=== PATIENT | female | born 1995 | race African-American/Black ===

== ENCOUNTER 2018-02-09 16:43 | Emergency (ER) | payer OTHER ==
[2018-02-09 16:54] VITALS: BP 117/85
[2018-02-09] MEDS ORDERED: DEXAMETHASONE 10 MG/ML VIAL PO STA (17:21)
[2018-02-09] MEDS ORDERED: IPRATROPIUM/ALBUTEROL 3 ML NEB INH STA (17:21)
--- NOTE | 2018-02-09 17:44 | ED Physician Documentation ---
PD HPI URI - Stated complaint Stated Complaint: Cough/ congestion - Chief complaint Chief Complaint: Resp - History obtained from History obtained from: Patient - History of Present Illness Timing - onset: How many weeks ago (1) Timing duration: Weeks (1) Timing details: Gradual onset, Still present Associated symptoms: Fever, Sweats, Nasal congestion, Rhinorrhea, Dry cough, Chest pain, Dyspnea Contributing factors: Sick contact Improves by: Rest, Medication Worsened by: Activity Similar symptoms before: No diagnosis Recently seen: Clinic - Additional information Additional information: 22-year-old female has developed a sore throat cough fever congestion and chest pain. She is having some trouble getting a full deep breath. She had something similar to this happen about 1 month ago she took today off work and had improvement. Review of Systems Constitutional: reports: Fever, Chills, Myalgias, Fatigue Eyes: denies: Decreased vision Ears: denies: Ear pain Nose: reports: Rhinorrhea / runny nose, Congestion Throat: reports: Sore throat Cardiac: denies: Chest pain / pressure, Palpitations Respiratory: reports: Dyspnea, Cough, Wheezing GI: denies: Abdominal Pain, Nausea, Vomiting : denies: Dysuria PD PAST MEDICAL HISTORY - Present Medications Home Medications: Ambulatory Orders Medication Instructions Recorded Confirmed Albuterol Sulf [Ventolin Hfa 1 - 2 puffs INH Q4HR PRN #1 inhaler 02/09/18 Inhaler] Azithromycin [Zithromax] 250 mg PO DAILY #6 tablet 02/09/18 predniSONE [Deltasone] 10 mg PO DAILY #26 tablet 02/09/18 - Allergies Allergies/Adverse Reactions: Allergies Allergy/AdvReac Type Severity Reaction Status Date / Time pseudoephedrine Allergy Mild Unknown Verified 02/09/18 16:54 [From [facility] PD ED PE NORMAL - Vitals Vital signs reviewed: Yes (hypertensive diastolic mild ) - General General: Alert and oriented X 3, No acute distress, Well developed/nourished - HEENT HEENT: Atraumatic, PERRL, EOMI, Ears normal, Other (The pharynx is with 2+ crypitc tonsils with exudate) - Neck Neck: Supple, no meningeal sign, No bony TTP, Other (shoddy adenopathy bilaterally ) - Cardiac Cardiac: RRR, No murmur - Respiratory Respiratory: No respiratory distress, Other (diminished breath sounds bilaterally ) - Abdomen Abdomen: Soft, Non tender - Back Back: No CVA TTP, No spinal TTP - Derm Derm: Normal color, Warm and dry, No rash - Extremities Extremities: No deformity, No edema - Neuro Neuro: Alert and oriented X 3, pass worker 2-12 intact, No motor deficit, No sensory deficit, Normal speech Eye Opening: Spontaneous Motor: Obeys Commands Verbal: Oriented GCS Score: 15 - Psych Psych: Normal mood, Normal affect Results - Vitals Vitals: Vital Signs - 24 hr 02/09/18 02/09/18 16:49 17:36 Temperature 36.6 C Heart Rate 93 72 Respiratory 16 18 Rate Blood Pressure 117/85 H O2 Saturation 100 Oxygen O2 Source Room air - Labs Labs: Laboratory Tests 02/09/18 17:22 Group A Strep Rapid Negative PD MEDICAL DECISION MAKING - ED course Complexity details: considered differential, d/w patient ED course: 22-year-old female with tonsillopharyngitis and a cough with bronchospasm is administered dexamethasone 10 mg orally and a DuoNeb treatment is administered. She has marked improvement with the duoneb treatment. - Sepsis Event Vital Signs: Vital Signs - 24 hr 02/09/18 02/09/18 16:49 17:36 Temperature 36.6 C Heart Rate 93 72 Respiratory 16 18 Rate Blood Pressure 117/85 H O2 Saturation 100 Oxygen O2 Source Room air Departure - Departure Disposition: 01 Home, Self Care Clinical Impression: Bronchitis with asthma, acute, Tonsillopharyngitis Condition: Stable Instructions: ED Bronchitis Asthmatic, ED Tonsillitis Follow-Up: LUNA Bernal [Provider Group] Prescriptions: Albuterol Sulf [Ventolin Hfa Inhaler] 1 - 2 puffs INH Q4HR PRN #1 inhaler PRN Reason: Shortness Of Air/Wheezing Azithromycin [Zithromax] 250 mg PO DAILY #6 tablet predniSONE [Deltasone] 10 mg PO DAILY #26 tablet Forms: Activity restrictions
[2018-02-09] MEDS ORDERED: CHERRY SYRUP 10 ML UDC PO ONE (17:55)
== END 2018-02-09 18:03 | disposition home or self-care (01) ==
LOC: ED 16:43
DX: J45.909 Unspecified asthma, uncomplicated (principal); J02.9 Acute pharyngitis, unspecified
CPT/HCPCS: 87070; 87430; 94640; 94664; 99283; A9270